=== PATIENT | male | born 1985 | race African-American/Black ===

== ENCOUNTER → 2019-03-14 | Emergency (ER) | payer BC ==
[~2019-03-14] VITALS: Ht 177.8 cm; Wt 176.9 kg
[~2019-03-14] MED LIST: ASA81 MG; COZAAR100 MG PO; LOSARTAN-HCTZ1 EAC2; NORVASC10 MG PO
== END | disposition left against medical advice (07) ==
LOC: ER 14:42
DX: Z53.20 Procedure and treatment not carried out because of patient's decision for unspecified reasons (principal)